=== PATIENT | male | born 1930 | race Caucasian/White ===

== ENCOUNTER → 2018-07-08 | Outpatient (CLI) | payer MEDICARE, BC ==
[~2018-07-08] MED LIST: REGADENOSON 0.4 MG/5 ML SYRINGE ONE
== END | disposition home or self-care (01) ==
LOC: CFH 07:48
PROVIDERS: ATTEND Internal Medicine Cardiovascular Disease
DX: Z01.810 Encounter for preprocedural cardiovascular examination (principal); I48.2 Chronic atrial fibrillation; I42.9 Cardiomyopathy, unspecified
CPT/HCPCS: 78452; 93017; 93306; A9502; J2785

== ENCOUNTER 2018-12-31 05:51 | Inpatient (IN) | payer MEDICARE, BC ==
[~2018-12-31] VITALS: Ht 190.5 cm; Wt 98.0 kg
[~2018-12-31 05:51] MED LIST changes: +CALC-116 PO; +CARV3.122 PO; +DIGO250T PO; +DOCU250C9 PO; +LEVO125T5 PO; +LOSA25TA25 PO; +MULT-516 PO; -REGADENOSON 0.4 MG/5 ML SYRINGE ONE; +ROSU5TAB PO; +WARF-36 PO; +WARF2.5T32 PO
[2018-12-31] MEDS ORDERED: KETOROLAC 60 MG/2 ML ONE (06:29)
[2018-12-31] MEDS ORDERED: TRANEXAMIC ACID 100 MG/ML, 10ML ONE ×3 (06:30→08:17)
[2018-12-31] MEDS ORDERED: ROPIvacaine/PF 0.2%, 20 ML ONE (06:30)
[2018-12-31] MEDS ORDERED: VANCOMYCIN 1,000 MG ONE (06:30)
[2018-12-31] MEDS ORDERED: EPINEPHRINE 1 MG/ML, 1ML ONE (06:30)
[2018-12-31] MEDS ORDERED: SODIUM CHLORIDE 0.9% 50 ML ONE (06:30)
[2018-12-31] MEDS ORDERED: ACETAMINOPHEN 500 MG TABLET PO ONE (07:00)
[2018-12-31] MEDS ORDERED: TAMSULOSIN 0.4 MG CAP.ER.24H PO ONE (07:00)
[2018-12-31] MEDS ORDERED: GABAPENTIN 300 MG CAPSULE PO ONE (07:00)
[2018-12-31 07:10] VITALS: BP 132/93
[2018-12-31] MEDS ORDERED: FENTANYL PF 100 MCG/2ML ONE ×3 (07:24→10:18)
[2018-12-31] MEDS ORDERED: MIDAZOLAM 1 MG/ML, 2ML ONE (07:24)
[2018-12-31] MEDS: LACTATED RINGERS 1,000 ML IV SCH ×5 (07:30→17:25)
[2018-12-31] MEDS ORDERED: ALUMINUM/MAG/SIMETHICONE 30 ML UDC PO PRN (08:30)
[2018-12-31] MEDS ORDERED: ONDANSETRON 4 MG TABLET PO PRN (08:30)
[2018-12-31] MEDS ORDERED: MAGNESIUM HYDROXIDE 8%, 30ML UDC PO PRN (08:30)
[2018-12-31] MEDS ORDERED: DIPHENHYDRAMINE 50 MG CAPSULE PO PRN (08:30)
[2018-12-31] MEDS ORDERED: SENNA/DOCUSATE TABLET PO PRN (08:30)
[2018-12-31] MEDS ORDERED: TEMPLATE NON-FORMULARY MED. (Warfarin Sodium** 5 MG) PO SCH (08:30)
[2018-12-31] MEDS: ACETAMINOPHEN 650 MG/20.3 ML UDC PO SCH ×3 (08:30→20:07)
[2018-12-31] MEDS ORDERED: DIAZEPAM 5 MG TABLET PO PRN (08:30)
[2018-12-31] MEDS ORDERED: ZOLPIDEM 5MG TABLET PO PRN (08:30)
[2018-12-31] MEDS ORDERED: HYDROmorphone 1 MG/ML, 1ML AMP IV PRN (08:30)
[2018-12-31] MEDS ORDERED: PROMETHAZINE 12.5 MG SUPP PR PRN (08:30)
[2018-12-31] MEDS ORDERED: BISACODYL 10 MG SUPP PR PRN (08:30)
[2018-12-31] MEDS ORDERED: OXYcodone IR 5MG TABLET PO PRN (08:30)
[2018-12-31] MEDS: KETOROLAC 30 MG/1 ML IV SCH ×2 (08:30→20:07)
[2018-12-31] MEDS ORDERED: ONDANSETRON 2MG/ML, 2ML IV PRN ×2 (08:30→09:30)
[2018-12-31] MEDS ORDERED: PROMETHAZINE 25 MG/ML, 1ML IM PRN (08:30)
[2018-12-31] MEDS ORDERED: DEXAMETHASONE 4 MG/ML, 5ML ONE (08:34)
[2018-12-31] MEDS ORDERED: PHENYLEPHRINE 10 MG/ML ONE (08:34)
[2018-12-31] MEDS ORDERED: EPHEDRINE 50 MG/ML, 1ML ONE (08:34)
[2018-12-31] MEDS: DIGOXIN 0.25 MG TABLET PO SCH (09:00)
[2018-12-31] MEDS: DOCUSATE 100 MG CAPSULE PO SCH ×2 (09:00→20:07)
[2018-12-31] MEDS: MULTIVITAMINS/MINERALS TABLET PO SCH (09:00)
[2018-12-31] MEDS: CARVEDILOL 3.125 MG TABLET PO SCH ×2 (09:00→20:08)
[2018-12-31] MEDS: LOSARTAN 25MG TABLET PO SCH (09:00)
[2018-12-31] MEDS: LEVOTHYROXINE 125 MCG TABLET PO SCH (09:00)
[2018-12-31] MEDS ORDERED: HYDROmorphone 2 MG/ML, 1ML IVPush PRN (09:30)
[2018-12-31] MEDS ORDERED: hydrALAzine 20 MG/ML, 1ML IV PRN (09:30)
[2018-12-31] MEDS ORDERED: PROMETHAZINE 25 MG/ML, 1ML IV PRN (09:30)
[2018-12-31] MEDS ORDERED: OXYcodone 5 MG/5 ML ORAL.SOL UDC PO PRN (09:30)
[2018-12-31] MEDS ORDERED: METOPROLOL 1 MG/ML, 5ML IV PRN (09:30)
[2018-12-31] MEDS ORDERED: FENTANYL PF 100 MCG/2ML IV PRN (09:30)
[2018-12-31] MEDS ORDERED: ALBUTEROL/IPRATROPIUM 2.5MG/0.5MG, 3 ML NPPB PRN (09:30)
[2018-12-31] MEDS ORDERED: MEPERIDINE/PF 25MG/0.5ML IVPush PRN (09:30)
[2018-12-31] MEDS ORDERED: MIDAZOLAM 1 MG/ML, 2ML IV PRN (09:30)
[2018-12-31] MEDS ORDERED: ONDANSETRON 2MG/ML, 2ML ONE (09:35)
[2018-12-31] MEDS ORDERED: CEFAZOLIN 1,000 MG ONE (09:35)
[2018-12-31] MEDS ORDERED: LIDOCAINE-MPF 2% ,5ML ONE (09:35)
[2018-12-31] MEDS ORDERED: BUPIVACAINE/PF 0.25% ONE (09:35)
[2018-12-31] MEDS ORDERED: PROPOFOL 10 MG/ML, 20ML ONE (09:35)
[2018-12-31] MEDS ORDERED: TRANEXAMIC ACID 1,000 MG in SODIUM CHLORIDE 0.9% 100 ML IVPB ONE (10:00)
[2018-12-31] MEDS ORDERED: HYDROmorphone 1 MG/ML, 1ML AMP ONE (10:18)
[2018-12-31] MEDS ORDERED: OXYcodone 5 MG/5 ML ORAL.SOL UDC ONE (10:18)
[2018-12-31 12:30] VITALS: BP 117/72
[2018-12-31] MEDS: D5%-0.45% NACL 1,000 ML IV SCH (14:52)
[2018-12-31 15:15] VITALS: BP 118/65
[2018-12-31] MEDS: CEFAZOLIN PMX 2GM/50ML 50 ML IVPB SCH (19:04)
[2018-12-31 19:45] VITALS: BP 92/54
[2018-12-31] MEDS ORDERED: TEMPLATE NON-FORMULARY MED. (Rosuvastatin Calcium** (Crestor**) 5 MG) PO SCH (21:00)
[2019-01-01 00:14] VITALS: BP 96/60
[2019-01-01] MEDS: D5%-0.45% NACL 1,000 ML IV SCH ×2 (01:14→07:36)
[2019-01-01] MEDS: CEFAZOLIN PMX 2GM/50ML 50 ML IVPB SCH (03:37)
[2019-01-01] MEDS: ACETAMINOPHEN 650 MG/20.3 ML UDC PO SCH ×2 (03:37→10:00)
[2019-01-01 03:39] VITALS: BP 95/57
[2019-01-01] MEDS ORDERED: ENOXAPARIN 40 MG/0.4 ML SQ SCH (06:00)
[2019-01-01] MEDS ORDERED: DEXAMETHASONE 4 MG/ML, 1ML IVPush SCH (06:00)
[2019-01-01 06:24] LABS: INTERNATIONAL NORMALIZED RATIO 1.2 (0.93-1.1); PROTHROMBIN TIME 12.5 Seconds (9.6-11.5)
[2019-01-01] MEDS: MULTIVITAMINS/MINERALS TABLET PO SCH (07:32)
[2019-01-01] MEDS: CARVEDILOL 3.125 MG TABLET PO SCH (07:32)
[2019-01-01] MEDS: LEVOTHYROXINE 125 MCG TABLET PO SCH (07:32)
[2019-01-01] MEDS: DOCUSATE 100 MG CAPSULE PO SCH (07:33)
[2019-01-01] MEDS: LOSARTAN 25MG TABLET PO SCH (07:33)
[2019-01-01] MEDS: DIGOXIN 0.25 MG TABLET PO SCH (07:33)
[2019-01-01 07:45] VITALS: BP 113/71
[2019-01-01] MEDS ORDERED: OXYC5CAP2 PO (12:40)
== END 2019-01-01 13:35 | disposition home or self-care (01) | DRG 470 ==
LOC: OUT 05:51 → ORIP 08:25 → 4NOR 12:05 → DCLOUNGE 01-01 11:10
PROVIDERS: ADMIT Orthopaedic Surgery; ATTEND Orthopaedic Surgery
PROC: 3E0T3BZ Introduction of Anesthetic Agent into Peripheral Nerves and Plexi, Percutaneous Approach (ICD-10-PCS; 2018-12-31)
PROC: 0SRC0J9 Replacement of Right Knee Joint with Synthetic Substitute, Cemented, Open Approach (ICD-10-PCS; principal; 2018-12-31 08:45)
PROC: 5A09357 Assistance with Respiratory Ventilation, Less than 24 Consecutive Hours, Continuous Positive Airway Pressure (ICD-10-PCS; 2019-01-01)
DX: M17.11 Unilateral primary osteoarthritis, right knee (principal); M21.161 Varus deformity, not elsewhere classified, right knee; I10 Essential (primary) hypertension; I49.5 Sick sinus syndrome; I25.10 Atherosclerotic heart disease of native coronary artery without angina pectoris; E78.5 Hyperlipidemia, unspecified; E03.9 Hypothyroidism, unspecified; G47.33 Obstructive sleep apnea (adult) (pediatric); Z86.718 Personal history of other venous thrombosis and embolism; Z88.2 Allergy status to sulfonamides; Z95.0 Presence of cardiac pacemaker; Z85.46 Personal history of malignant neoplasm of prostate; Z85.850 Personal history of malignant neoplasm of thyroid
CPT/HCPCS: 36415; 85014; 85018; 85610; C1713; G0378; J0171; J0690; J1100; J1650; J1885; J2250; J2405; J2704; J2795; J3010; J3370; J3490; C1776; J2370; J7120

== ENCOUNTER 2020-07-21 09:42 | Day surgery (SDC) | payer MEDICARE, BC ==
[~2020-07-21] VITALS: Ht 190.5 cm; Wt 90.9 kg
[~2020-07-21 09:42] MED LIST changes: -DIGO250T PO; +DIGO250T3 PO; +OXYC5CAP2 PO
[2020-07-21] MEDS ORDERED: SODIUM CHLORIDE 0.9% 1,000 ML IV SCH (10:03)
[2020-07-21] MEDS ORDERED: WARF2.5T32 PO (10:10)
[2020-07-21] MEDS ORDERED: WARF-36 PO (10:10)
[2020-07-21] MEDS ORDERED: CALC-116 PO (10:13)
[2020-07-21] MEDS ORDERED: CEFAZOLIN PMX 1GM/50ML 50 ML IVPB ONE (10:30)
[2020-07-21 10:34] VITALS: BP 144/88
[2020-07-21 10:48] LABS: BASOPHILS # (AUTO) 0.03 x10^3/uL (0-0.1); BASOPHILS % (AUTO) 0 % (0-1); EOSINOPHILS # (AUTO) 0.17 x10^3/uL (0-0.4); EOSINOPHILS % (AUTO) 2 % (1-7); LYMPHOCYTES # (AUTO) 1.71 x10^3/uL (1-3.4); LYMPHOCYTES % (AUTO) 21 % (22-44); MD NO; MEAN CORPUSCULAR HEMOGLOBIN 31.1 pg (27.5-34.5); MEAN PLATELET VOLUME 7.9 fL (7.4-10.4); MONOCYTES # (AUTO) 0.97 x10^3/uL (0.2-0.8); MONOCYTES % (AUTO) 12 % (2-9); NEUTROPHILS # (AUTO) 5.08 x10^3/uL (1.8-6.8); NEUTROPHILS % (AUTO) 64 % (42-75); PLATELET COUNT 210 x10^3/uL (130-400); RED BLOOD COUNT 4.95 x10^6/uL (4.38-5.82); RED CELL DISTRIBUTION WIDTH 13.9 % (9.4-14.8)
[2020-07-21 10:58] LABS: ANION GAP 6 mmol/L (5-15); CALCIUM 8.6 mg/dL (8.5-10.1); CHLORIDE 109 mmol/L (98-107); CREATININE 1.13 mg/dL (0.7-1.3)
[2020-07-21 10:59] LABS: INTERNATIONAL NORMALIZED RATIO 1.62 (0.93-1.1); PROTHROMBIN TIME 16.8 Seconds (9.6-11.5)
[2020-07-21] MEDS ORDERED: CEFAZOLIN 1,000 MG ONE (11:51)
[2020-07-21] MEDS ORDERED: LIDOCAINE 1%, 20ML ONE (11:51)
[2020-07-21] MEDS ORDERED: FENTANYL PF 100 MCG/2ML ONE (12:02)
[2020-07-21] MEDS ORDERED: MIDAZOLAM 1 MG/ML, 2ML ONE (12:02)
== END 2020-07-21 14:30 | disposition home or self-care (01) ==
LOC: CACL 09:42
PROVIDERS: ATTEND Internal Medicine Clinical Cardiac Electrophysiology
DX: Z45.010 Encounter for checking and testing of cardiac pacemaker pulse generator [battery] (principal); I48.19 Other persistent atrial fibrillation; I49.5 Sick sinus syndrome; I42.9 Cardiomyopathy, unspecified; I25.10 Atherosclerotic heart disease of native coronary artery without angina pectoris; I10 Essential (primary) hypertension; E78.2 Mixed hyperlipidemia; E03.9 Hypothyroidism, unspecified; G47.33 Obstructive sleep apnea (adult) (pediatric); Z79.01 Long term (current) use of anticoagulants; Z79.890 Hormone replacement therapy; Z79.899 Other long term (current) drug therapy; Z86.718 Personal history of other venous thrombosis and embolism; Z88.2 Allergy status to sulfonamides
CPT/HCPCS: 33227; 36415; 71046; 80048; 85025; 85610; 93005; 99156; C1786; J0690; J2250; J3010